=== PATIENT | male | born 1940 | race Caucasian/White ===

== ENCOUNTER 2025-01-30 10:18 | Day surgery (SDC) | payer OTHER, SELFPAY ==
[2025-01-30] VITALS (7 sets, daily range): BP systolic 121–149; BP diastolic 61–95; BMI 31.2
[2025-01-30 11:18] LABS: ALT (SGPT) 31 U/L (0-50); AST (SGOT) 30 U/L (17-59); Albumin 4.4 g/dl (3.5-5.0); Alkaline Phosphatase 86 U/L (38-126); Blood Urea Nitrogen 21 mg/dl (9-20); Calcium 10.1 mg/dl (8.4-10.2); Carbon Dioxide 31 mmol/L (22-30); Chloride 105 mmol/L (98-107); Estimated Creatinine Clearance 56 ml/min; Glucose 146 mg/dl (70-99); Potassium 3.8 mmol/L (3.5-5.1); Sodium 142 mmol/L (135-145); Total Bilirubin 1.3 mg/dl (0.2-1.3); Total Protein 7.2 g/dl (6.3-8.2); eGFR > 60.00
[2025-01-30 11:23] LABS: Hematocrit 40.5 % (39.0-52.0); Hemoglobin 13.8 g/dL (13.0-18.0); Mean Corp Hgb Conc. 34.1 g/dL (33.0-37.0); Mean Corpuscular Hgb 30.8 pg (27.0-31.0); Mean Corpuscular Volume 90.4 fL (80.0-94.0); Mean Platelet Volume 10.9 fL (7.4-10.4); Platelet Count 214 10^3/uL (130-400); Red Blood Cell Count 4.48 10^6/uL (4.70-6.10); Red Cell Dist. Width 12.9 % (11.5-14.5)
--- NOTE | 2025-01-30 14:25 | ITS.CL.PACE ---
Learning Services Coordinator - Pacemaker Implant
Pacemaker Implant
Procedure Report:
Date of Procedure: January 30, 2025
Patient : 1940
Procedure: Pacemaker generator change
Indication: Generator ZAKI
Implants:
Pulse Generator: Medtronic; Model# W1 DR ; SN: [id number] implanted today
RA Lead: Medtronic; Model# 5076; SN: [id number] implanted 2014
RV Lead: Medtronic; Model# 5076; SN: [id number] implanted 2014
Explants:
Medtronic pacemaker product number A2 DR serial number [id number] originally implanted 2014
Technique: A time out was performed. The procedure site was identified. The patient was anesthetized by the anesthesia service. Preoperative sedation was administered. The patient was prepped and draped in the usual fashion. Local anesthetic was
applied to the left prepectoral subcutaneous tissue. A 3 inch incision was made 2.5 inches below the left clavicle. A subcutaneous pocket was created with blunt and sharp dissection and hemostasis controlled with Bovie cautery. The chronic
generator was identified and removed from the field. Patient has underlying sinus bradycardia with first-degree AV delay. The chronic leads were connected to the new generator with stable parameters and the device was placed back in the chronic
pocket. The leads were appropriately attached to the device. The pocket was irrigated with antibiotic solution. The device and leads were placed in the pocket. The incision was closed in three layers with absorbable suture. The estimated blood loss
was minimal. There were no complications.��
Lead Analysis:
RA lead: P: 2.9 mV; Threshold: 1.0 V @ 0.5��ms; Impedance: 418 ohms.
RV lead: R: 5.4 mV; Threshold: 1.0 V @ 0.5��ms; Impedance: 342 ohms.
Final Programming: AAIR�DDDR 60 to 130 bpm
�
Conclusion: Uncomplicated Medtronic pacemaker implant.
Recommendation: Routine post pacemaker care.
== END 2025-01-30 14:33 | disposition home or self-care (01) ==
LOC: CATH 10:18
PROVIDERS: ATTENDING PHYSICIAN Internal Medicine Cardiovascular Disease; FAMILY PHYSICIAN Family Medicine; OTHER PHYSICIAN Internal Medicine Cardiovascular Disease
DX: Z45.010 Encounter for checking and testing of cardiac pacemaker pulse generator [battery] (principal); I49.5 Sick sinus syndrome; I48.0 Paroxysmal atrial fibrillation; I10 Essential (primary) hypertension; E78.5 Hyperlipidemia, unspecified; Z86.73 Personal history of transient ischemic attack (TIA), and cerebral infarction without residual deficits; E11.9 Type 2 diabetes mellitus without complications
CPT/HCPCS: 33228; 80053; 85027; C1785